=== PATIENT | male | born 1955 | race African-American/Black ===

== ENCOUNTER 2018-06-25 01:39 | Inpatient (IN) | payer OTHER, MEDICAID ==
[2018-06-25] MEDS ORDERED: SODIUM CHLORIDE 0.9% 1L BAG IV* (01:59)
[2018-06-25 02:29] LABS: ADD MAN DIFF? NO
[2018-06-25 02:30] LABS: ABNORMAL IP MESSAGE 1; BASOPHILS % 0.1 % (0.0-2.0); HEMATOCRIT 31.1 % (42.0-52.0); HEMOGLOBIN 9.4 g/dl (14.0-18.0); LYMPHOCYTES # 0.7 10^3/ul (0.8-2.9); LYMPHOCYTES % 6.4 % (15.0-51.0); MEAN CORPUSCULAR HEMOGLOBIN 22.2 pg (29.0-33.0); MEAN CORPUSCULAR HGB CONC 30.2 g/dl (32.0-37.0); MEAN CORPUSCULAR VOLUME 73.3 fl (82.0-101.0); MEAN PLATELET VOLUME 10.2 fl (7.4-10.4); MONOCYTE # 1.1 10^3/ul (0.3-0.9); MONOCYTES % 9.6 % (0.0-11.0); NEUTROPHIL # 9.1 10^3/ul (1.6-7.5); NEUTROPHILS % 83.4 % (39.0-77.0); PLATELET COUNT 289 10^3/UL (140-415); POSITIVE DIFF @See below; RED BLOOD COUNT 4.24 10^6/ul (4.70-6.10); RED CELL DISTRIBUTION WIDTH 25.6 % (11.5-14.5)
[2018-06-25 02:37] LABS: URINE PH (Dip) POC 5.5 (5.0-8.5)
[2018-06-25 02:37] LABS: URINE BLOOD (Dip) POC Negative (NEGATIVE); URINE GLUCOSE (Dip) POC Negative (NEGATIVE); URINE KETONES (Dip) POC Negative (NEGATIVE); URINE LEUKOCYTE EST (Dip) POC Negative (NEGATIVE); URINE NITRITE (Dip) POC Negative (NEGATIVE); URINE TOTAL PROTEIN POC Negative (NEGATIVE)
[2018-06-25 02:50] LABS: ALANINE AMINOTRANSFERASE 139 IU/L (13-69); ALBUMIN 3.2 g/dl (3.3-4.9); ALBUMIN/GLOBULIN RATIO 0.91; ALKALINE PHOSPHATASE 91 IU/L (42-121); ANION GAP 14 (5-13); ASPARTATE AMINO TRANSFERASE 205 IU/L (15-46); BILIRUBIN,TOTAL 3.4 mg/dl (0.2-1.3); BLOOD UREA NITROGEN 41 mg/dl (7-20); CALCIUM 8.6 mg/dl (8.4-10.2); CARBON DIOXIDE 26 mmol/L (21-31); CHLORIDE 99 mmol/L (97-110); CREATININE 1.01 mg/dl (0.61-1.24); Estimated GFR > 60 mL/min (>60); GLUCOSE 179 mg/dl (70-220); INR 3.42; LIPASE 111 U/L (23-300); PARTIAL THROMBOPLASTIN TIME 38.8 Sec (23.0-35.0); POTASSIUM 4.3 mmol/L (3.5-5.1); PROTIME 35.6 Sec (11.9-14.9); PT RATIO 2.8; SODIUM 139 mmol/L (135-144); TOTAL PROTEIN 6.7 g/dl (6.1-8.1)
[2018-06-25 02:52] LABS: ADD UMIC NO; UR ASCORBIC ACID 40 mg/dL (NEGATIVE); UR BACTERIA FEW /HPF (NONE SEEN); UR BILIRUBIN (Dip) NEGATIVE (NEGATIVE); UR BLOOD (Dip) NEGATIVE (NEGATIVE); UR BUDDING YEAST FEW /HPF (NONE SEEN); UR CLARITY SLIGHTLY CLOUDY (CLEAR); UR COLOR AMBER (YELLOW); UR GLUCOSE (Dip) NEGATIVE (NEGATIVE); UR KETONES (Dip) NEGATIVE (NEGATIVE); UR LEUKOCYTE ESTERASE (Dip) NEGATIVE Leu/ul (NEGATIVE); UR MUCUS FEW /HPF (NONE SEEN); UR NITRITE (Dip) NEGATIVE (NEGATIVE); UR RBC 1 /HPF (0-5); UR SPECIFIC GRAVITY (Dip) 1.012 (1.003-1.030); UR SQUAMOUS EPITHELIAL CELL FEW /HPF (FEW); UR TOTAL PROTEIN (Dip) NEGATIVE (NEGATIVE); UR UROBILINOGEN (Dip) 1+ mg/dL (NEGATIVE); UR WBC 8 /HPF (0-5)
[2018-06-25 03:01] LABS: TROPONIN-I 0.102 ng/ml (0.000-0.120)
[2018-06-25 03:07] LABS: AMMONIA 10 umol/l (9-30)
[2018-06-25] MEDS: CEFEPIME 1GM/50 ML (PMX) 50 ML IVPB (04:47)
[2018-06-25] MEDS: VANCOMYCIN 1 GM (PMX) 250 ML IVPB (05:28)
[2018-06-25] MEDS ORDERED: ACETAMINOPHEN 325 MG TAB PO (06:30)
[2018-06-25] MEDS ORDERED: ONDANSETRON 4 MG INJ IV (06:30)
[2018-06-25] MEDS ORDERED: NACL 0.9% 3 ML SYG IV (06:30)
[2018-06-25] MEDS: LEVOFLOXACIN 500MG/D5W (PMX) 100 ML IVPB (08:35)
[2018-06-25 09:09] LABS: LACTIC ACID 1.4 mmol/L (0.5-2.0)
[2018-06-25] MEDS: FUROSEMIDE 40 MG INJ IV (11:07)
[2018-06-25 12:50] LABS: LACTIC ACID 1.7 mmol/L (0.5-2.0)
[2018-06-25] MEDS ORDERED: PENDING SANTYL ORDER FOR WOUND CARE XX (18:30)
[2018-06-25 22:46] LABS: LACTIC ACID 1.2 mmol/L (0.5-2.0)
[2018-06-25 23:10] LABS: PHOSPHORUS 2.2 mg/dl (2.5-4.9)
[2018-06-25 23:10] LABS: MAGNESIUM 1.5 mg/dl (1.7-2.5)
[2018-06-26] MEDS: MAGNESIUM SULFATE 3 GM in DEXTROSE 5% 100 ML IVPB (01:13)
[2018-06-26] MEDS: SODIUM PHOSPHATE 20 MEQ in SOD CHLORIDE 0.9% 250 ML IVPB (03:35)
[2018-06-26 06:35] LABS: ADD MAN DIFF? NO
[2018-06-26 06:39] LABS: WHITE BLOOD COUNT 11.3 10^3/ul (4.8-10.8)
[2018-06-26 06:39] LABS: ABNORMAL IP MESSAGE 1; BASOPHILS % 0.1 % (0.0-2.0); EOSINOPHILS % 0.4 % (0.0-7.0); HEMOGLOBIN 10.2 g/dl (14.0-18.0); LYMPHOCYTES # 0.9 10^3/ul (0.8-2.9); LYMPHOCYTES % 7.5 % (15.0-51.0); MEAN CORPUSCULAR HEMOGLOBIN 22.5 pg (29.0-33.0); MEAN CORPUSCULAR HGB CONC 30.9 g/dl (32.0-37.0); MEAN CORPUSCULAR VOLUME 72.8 fl (82.0-101.0); MONOCYTE # 0.6 10^3/ul (0.3-0.9); MONOCYTES % 5.7 % (0.0-11.0); NEUTROPHIL # 9.7 10^3/ul (1.6-7.5); NEUTROPHILS % 85.9 % (39.0-77.0); PLATELET COUNT 223 10^3/UL (140-415); POSITIVE DIFF @See below; RED BLOOD COUNT 4.53 10^6/ul (4.70-6.10); RED CELL DISTRIBUTION WIDTH 25.8 % (11.5-14.5)
[2018-06-26 07:04] LABS: ALANINE AMINOTRANSFERASE 107 IU/L (13-69); ALBUMIN 2.9 g/dl (3.3-4.9); ALKALINE PHOSPHATASE 92 IU/L (42-121); ASPARTATE AMINO TRANSFERASE 113 IU/L (15-46); BILIRUBIN,TOTAL 2.7 mg/dl (0.2-1.3)
[2018-06-26 07:15] LABS: LACTIC ACID 1.9 mmol/L (0.5-2.0)
[2018-06-26 07:19] LABS: ALANINE AMINOTRANSFERASE 110 IU/L (13-69); ALBUMIN/GLOBULIN RATIO 0.81; ALKALINE PHOSPHATASE 94 IU/L (42-121); ANION GAP 12 (5-13); ASPARTATE AMINO TRANSFERASE 128 IU/L (15-46); BILIRUBIN,INDIRECT 1.1 mg/dl (0-1.1); BILIRUBIN,TOTAL 2.7 mg/dl (0.2-1.3); BLOOD UREA NITROGEN 28 mg/dl (7-20); CALCIUM 8.6 mg/dl (8.4-10.2); CARBON DIOXIDE 30 mmol/L (21-31); CHLORIDE 106 mmol/L (97-110); CREATININE 0.47 mg/dl (0.61-1.24); Estimated GFR > 60 mL/min (>60); GLUCOSE 76 mg/dl (70-220); MAGNESIUM 2.1 mg/dl (1.7-2.5); SODIUM 148 mmol/L (135-144); TOTAL PROTEIN 6.7 g/dl (6.1-8.1)
[2018-06-26 07:25] LABS: POTASSIUM 2.8 mmol/L (3.5-5.1)
[2018-06-26] MEDS: POTASSIUM CHLORIDE (SR) 20 MEQ TAB PO ×2 (09:11→12:22)
[2018-06-26] MEDS: LEVOFLOXACIN 500MG/D5W (PMX) 100 ML IVPB (10:00)
[2018-06-26] MEDS: FUROSEMIDE 40 MG INJ IV (10:00)
[2018-06-26] MEDS ORDERED: VANCOMYCIN IV PER PHARMACY XX (12:00)
[2018-06-26 14:10] LABS: LACTIC ACID 2.8 mmol/L (0.5-2.0)
[2018-06-26] MEDS ORDERED: VANCOMYCIN 1.25 GM in SOD CHLORIDE 0.9% 250 ML IVPB (17:00)
[2018-06-26] MEDS: VANCOMYCIN 2 GM in SOD CHLORIDE 0.9% 500 ML IVPB (17:18)
[2018-06-26 18:13] LABS: LACTIC ACID 1.7 mmol/L (0.5-2.0)
[2018-06-27] MEDS: VANCOMYCIN 1 GM 250 ML IVPB ×2 (02:10→10:29)
[2018-06-27 07:55] LABS: ADD MAN DIFF? NO
[2018-06-27 07:59] LABS: ABNORMAL IP MESSAGE 1; EOSINOPHILS # 0.1 10^3/ul (0.0-0.5); HEMATOCRIT 34.1 % (42.0-52.0); HEMOGLOBIN 10.2 g/dl (14.0-18.0); LYMPHOCYTES % 12.8 % (15.0-51.0); MEAN CORPUSCULAR HEMOGLOBIN 22.3 pg (29.0-33.0); MEAN CORPUSCULAR HGB CONC 29.9 g/dl (32.0-37.0); MEAN CORPUSCULAR VOLUME 74.5 fl (82.0-101.0); MONOCYTE # 0.7 10^3/ul (0.3-0.9); MONOCYTES % 9.3 % (0.0-11.0); NEUTROPHILS % 76.3 % (39.0-77.0); PLATELET COUNT 265 10^3/UL (140-415); POSITIVE DIFF @See below; RED BLOOD COUNT 4.58 10^6/ul (4.70-6.10); RED CELL DISTRIBUTION WIDTH 25.8 % (11.5-14.5)
[2018-06-27 07:59] LABS: WHITE BLOOD COUNT 7.9 10^3/ul (4.8-10.8)
[2018-06-27 08:15] LABS: ANION GAP 5 (5-13); BLOOD UREA NITROGEN 16 mg/dl (7-20); CALCIUM 8.4 mg/dl (8.4-10.2); CARBON DIOXIDE 37 mmol/L (21-31); CHLORIDE 110 mmol/L (97-110); CREATININE 0.36 mg/dl (0.61-1.24); Estimated GFR > 60 mL/min (>60); GLUCOSE 71 mg/dl (70-220); SODIUM 152 mmol/L (135-144)
[2018-06-27 08:17] LABS: INR 1.43; PROTIME 17.7 Sec (11.9-14.9); PT RATIO 1.4
[2018-06-27 08:21] LABS: POTASSIUM 2.7 mmol/L (3.5-5.1)
[2018-06-27 08:29] LABS: MAGNESIUM 1.5 mg/dl (1.7-2.5)
[2018-06-27 08:29] LABS: PHOSPHORUS 2.8 mg/dl (2.5-4.9)
[2018-06-27 08:31] LABS: LACTIC ACID 1.4 mmol/L (0.5-2.0)
[2018-06-27] MEDS: FUROSEMIDE 40 MG INJ IV (09:00)
[2018-06-27] MEDS: LEVOFLOXACIN 500MG/D5W (PMX) 100 ML IVPB (09:09)
[2018-06-27] MEDS: POTASSIUM CHLORIDE 20 MEQ POWDER FOR ORAL SOLN PO (10:54)
[2018-06-27] MEDS: ALBUTEROL/IPRATROPIUM (NEB) 3 ML AMP HHN ×2 (11:04→21:16)
[2018-06-27] MEDS: MAGNESIUM SULFATE 1 GM/D5W 100 ML IVPB ×3 (15:57→18:59)
[2018-06-27 17:11] LABS: VANCOMYCIN,TROUGH 30.9 ug/ml (10.0-20.0)
[2018-06-27] MEDS ORDERED: HEPARIN 5,000 UNIT/0.5 ML VIAL (21:00)
[2018-06-27] MEDS: HEPARIN 5,000 UNIT/1 ML VIAL SC (21:17)
[2018-06-28] MEDS ORDERED: HEPARIN 5,000 UNIT/0.5 ML VIAL ×3 (05:39→20:07)
[2018-06-28] MEDS: HEPARIN 5,000 UNIT/1 ML VIAL SC ×3 (06:29→21:55)
[2018-06-28] MEDS: VANCOMYCIN 1 GM 250 ML IVPB (06:29)
[2018-06-28] MEDS: LEVOFLOXACIN 500MG/D5W (PMX) 100 ML IVPB (08:14)
[2018-06-28] MEDS: BALSAM PERU/CASTOR OIL 60 GM TUBE TOP (08:14)
[2018-06-28 10:09] LABS: ADD MAN DIFF? NO
[2018-06-28 10:12] LABS: ABNORMAL IP MESSAGE 1; BASOPHILS % 0.1 % (0.0-2.0); EOSINOPHILS # 0.1 10^3/ul (0.0-0.5); EOSINOPHILS % 1.3 % (0.0-7.0); HEMATOCRIT 36.3 % (42.0-52.0); HEMOGLOBIN 10.7 g/dl (14.0-18.0); LYMPHOCYTES # 1.6 10^3/ul (0.8-2.9); LYMPHOCYTES % 18.8 % (15.0-51.0); MEAN CORPUSCULAR HEMOGLOBIN 22.2 pg (29.0-33.0); MEAN CORPUSCULAR HGB CONC 29.5 g/dl (32.0-37.0); MEAN CORPUSCULAR VOLUME 75.3 fl (82.0-101.0); MONOCYTE # 0.9 10^3/ul (0.3-0.9); NEUTROPHIL # 5.8 10^3/ul (1.6-7.5); PLATELET COUNT 267 10^3/UL (140-415); POSITIVE DIFF @See below; RED BLOOD COUNT 4.82 10^6/ul (4.70-6.10); RED CELL DISTRIBUTION WIDTH 25.7 % (11.5-14.5)
[2018-06-28 10:12] LABS: WHITE BLOOD COUNT 8.6 10^3/ul (4.8-10.8)
[2018-06-28 10:37] LABS: ALANINE AMINOTRANSFERASE 74 IU/L (13-69); ALBUMIN 3.1 g/dl (3.3-4.9); ALBUMIN/GLOBULIN RATIO 0.86; ALKALINE PHOSPHATASE 95 IU/L (42-121); ANION GAP 10 (5-13); ASPARTATE AMINO TRANSFERASE 58 IU/L (15-46); BILIRUBIN,INDIRECT 0.9 mg/dl (0-1.1); BILIRUBIN,TOTAL 1.8 mg/dl (0.2-1.3); BLOOD UREA NITROGEN 17 mg/dl (7-20); CALCIUM 8.4 mg/dl (8.4-10.2); CARBON DIOXIDE 32 mmol/L (21-31); CHLORIDE 104 mmol/L (97-110); CREATININE 0.71 mg/dl (0.61-1.24); Estimated GFR > 60 mL/min (>60); GLUCOSE 166 mg/dl (70-220); MAGNESIUM 2.2 mg/dl (1.7-2.5); POTASSIUM 3.5 mmol/L (3.5-5.1); SODIUM 146 mmol/L (135-144); TOTAL PROTEIN 6.7 g/dl (6.1-8.1)
[2018-06-28 10:37] LABS: PHOSPHORUS 2.5 mg/dl (2.5-4.9)
[2018-06-29] MEDS ORDERED: HEPARIN 5,000 UNIT/0.5 ML VIAL (04:55)
[2018-06-29] MEDS: HEPARIN 5,000 UNIT/1 ML VIAL SC (06:02)
[2018-06-29] MEDS: BALSAM PERU/CASTOR OIL 60 GM TUBE TOP (08:31)
[2018-06-29] MEDS ORDERED: BARIUM SULFATE 135 ML (E-Z HD) PO (09:28)
== END 2018-06-29 14:00 | DRG 291 ==
LOC: E/R 01:39 → TEL 17:06
DX: I11.0 Hypertensive heart disease with heart failure (principal); G93.41 Metabolic encephalopathy; J18.9 Pneumonia, unspecified organism; N39.0 Urinary tract infection, site not specified; I69.954 Hemiplegia and hemiparesis following unspecified cerebrovascular disease affecting left non-dominant side; I50.23 Acute on chronic systolic (congestive) heart failure; F41.9 Anxiety disorder, unspecified; F29 Unspecified psychosis not due to a substance or known physiological condition; E03.9 Hypothyroidism, unspecified; Z87.820 Personal history of traumatic brain injury; F03.90 Unspecified dementia, unspecified severity, without behavioral disturbance, psychotic disturbance, mood disturbance, and anxiety; K70.30 Alcoholic cirrhosis of liver without ascites; I73.9 Peripheral vascular disease, unspecified; Z89.512 Acquired absence of left leg below knee; I48.91 Unspecified atrial fibrillation; R13.10 Dysphagia, unspecified
CPT/HCPCS: 36415; 70450; 71045; 74230; 80048; 80053; 80076; 80202; 81001; 81003; 82140; 82962; 83605; 83690; 83735; 84100; 84443; 84484; 85025; 85610; 85730; 87040; 87081; 87086; 90686; 92526; 92610; 92611; 93005; 93306; 94640; 94664; 97163; 99291-25